=== PATIENT | female | born 1995 | race Caucasian/White ===

== ENCOUNTER 2018-11-18 14:08 | Emergency (ER) | payer OTHER ==
[~2018-11-18] VITALS: Ht 152.4 cm; Wt 77.1 kg
[2018-11-18 14:24] VITALS: Ht 152.4 cm; Wt 77.1 kg
[2018-11-18 16:13] VITALS: BP 110/71
== END 2018-11-18 16:13 | disposition home or self-care (01) ==
LOC: ED 14:08
DX: J35.1 Hypertrophy of tonsils (principal); Z88.2 Allergy status to sulfonamides

== ENCOUNTER 2020-08-26 03:33 | Inpatient (IN) | payer OTHER ==
[~2020-08-26] VITALS: Ht 154.9 cm; Wt 84.4 kg
[2020-08-26 03:48] VITALS: Ht 154.9 cm; Wt 84.4 kg
[2020-08-26 05:54] LABS: BASOPHIL % 0.4 % (0.2-1.3); PLATELET COUNT 236 x10^3mcL (179-408); RED CELL DISTRIBUTION WIDTH 12.9 % (12.3-17.7)
[2020-08-26 06:06] LABS: CALCIUM 9.2 mg/dL (8.5-10.1); CARBON DIOXIDE 25.6 mmol/L (21-32); CHLORIDE SERUM 101 mmol/L (98-107); CREATININE SERUM 0.8 mg/dL (0.6-1.0); GFR1 > 60 mL/min; GLUCOSE SERUM 79 mg/dL (74-106); POTASSIUM SERUM 3.3 mmol/L (3.5-5.1); SODIUM SERUM 137 mmol/L (136-145)
[2020-08-26 10:57] VITALS: BP 123/78
[2020-08-26 11:11] VITALS: BP 123/78
[2020-08-26 12:47] VITALS: BP 112/67; BP 126/51
[2020-08-26 17:45] VITALS: BP 130/77
[2020-08-26 21:17] VITALS: BP 97/61
[2020-08-27 05:37] LABS: PLATELET COUNT 223 x10^3mcL (179-408)
[2020-08-27 05:41] LABS: BASOPHIL % 0.4 % (0.2-1.3)
[2020-08-27 06:11] VITALS: BP 108/66
[2020-08-27 06:31] LABS: ALBUMIN 3.7 g/dL (3.4-5.0); ALKALINE PHOSPHATASE 105 U/L (46-116); ALT/SGPT 113 U/L (14-59); AST/SGOT 55 U/L (15-37); CALCIUM 9.1 mg/dL (8.5-10.1); CARBON DIOXIDE 24.4 mmol/L (21-32); CHLORIDE SERUM 101 mmol/L (98-107); CREATININE SERUM 0.8 mg/dL (0.6-1.0); GFR1 > 60 mL/min; GLUCOSE SERUM 82 mg/dL (74-106); SODIUM SERUM 137 mmol/L (136-145)
[2020-08-27 08:37] VITALS: BP 11/71
[2020-08-27] MEDS ORDERED: TYL325 PO (11:28)
[2020-08-27 12:02] VITALS: BP 111/68
[2020-08-27 13:06] VITALS: BP 111/68
[2020-08-27 15:06] VITALS: BP 123/69
[2020-08-27 16:32] VITALS: BP 123/69
== END 2020-08-27 16:51 | disposition home or self-care (01) | DRG 385 ==
LOC: ED 03:33 → MU 07:19
PROVIDERS: Emergency Medicine; ADMIT Hospitalist; ATTEND Hospitalist
PROC: 0H94XZX Drainage of Neck Skin, External Approach, Diagnostic (ICD-10-PCS; principal; 2020-08-26)
DX: R22.1 Localized swelling, mass and lump, neck (principal); Z20.822 Contact with and (suspected) exposure to COVID-19; Z23 Encounter for immunization; Z88.2 Allergy status to sulfonamides; Z90.89 Acquired absence of other organs
CPT/HCPCS: 90658; G0378; J1885; J2001; J2250; J2765; J3010; Q9967